=== PATIENT | male | born 1955 | race Caucasian/White ===

== ENCOUNTER 2020-04-17 08:03 | Outpatient (CLI) | payer MEDICARE, OTHER ==
--- NOTE | 2020-04-17 11:07 | ULT ---
BILATERAL RENAL ULTRASOUND: Date: 04/17/2020 COMPARISON: None. HISTORY: Chronic kidney disease. TECHNIQUE: Multiplanar Morton scale and color Doppler images were obtained in a renal ultrasound. FINDINGS: The kidneys are normal in echogenicity. There appears to be mild left-sided hydronephrosis. There is a slightly hypoechoic region in the mid portion of the right kidney measuring 3.7 cm in size. This ma y represent a normal lobulation of the right kidney. There is an echogenic focus in this region measu ring 4.0 mm in size, which could represent a nonshadowing calcification. There appears to be a 1.1 cm cyst in the left kidney. The kidneys measures 10.8 and 12.0 cm in length on the right and left, resp ectively. Limited visualization of the urinary bladder is unremarkable. IMPRESSION: 1. Hypoechoic region in the right kidney may represent a normal lobulation. A solid renal mass canno t be entirely excluded. A CT of the abdomen per renal mass protocol is recommended. 2. Likely nonobstructing small right renal calcification. 3. Left renal cyst. POS: [facility]
== END 2020-04-17 08:04 | disposition home or self-care (01) ==
LOC: SCSULT 08:03
PROVIDERS: ATTEND Internal Medicine
DX: N18.30 Chronic kidney disease, stage 3 unspecified (principal); N28.1 Cyst of kidney, acquired
CPT/HCPCS: 76770

== ENCOUNTER 2020-04-30 08:31 | Outpatient (CLI) | payer MEDICARE, OTHER ==
--- NOTE | 2020-04-30 10:22 | CT ---
CT ABDOMEN WITH AND WITHOUT CONTRAST: Renal mass protocol was followed. Postcontrast images were obtained in portal venous and delayed jaylyn ous phase. INDICATION: Question renal mass. Abnormal renal ultrasound 04/17/2020. FINDINGS: Images through the lung bases reveal a small 3 mm nodule in the right lower lobe. No infiltrate or e ffusion. Liver, spleen, pancreas, stomach, and duodenum unremarkable. Post cholecystectomy change. Adrenal glands normal. Review of the kidneys on noncontrast images shows a 3 mm nonobstructing calculus of the mid pole eric ecting structures of the right kidney. There is a parapelvic cyst in the left kidney measuring 2.3 c m. There appear to be other smaller parapelvic cysts bilaterally measuring up to 1.0 cm. There is no evidence of cortical mass. No enhancing abnormality. No evidence of cortical cyst. The delayed sequence shows contrast secretion into the collecting structures. No hydronephrosis. The visualized small and large bowel loops are unremarkable. The aorta is normal caliber. NO adenop athy or free fluid. Visualized osseous structures are unremarkable. There are degenerative disk rose nges at L5-S1. IMPRESSION: 1. Tiny nonobstructing calculus in the upper collecting structures of the right kidney. 2. Small bilateral parapelvic cysts. 3. No evidence of solid renal mass lesion. 4. No acute abdominal process. POS: AH
== END 2020-04-30 08:32 | disposition home or self-care (01) ==
LOC: SCSCT 08:31
PROVIDERS: ATTEND Internal Medicine
DX: N20.0 Calculus of kidney (principal); N13.30 Unspecified hydronephrosis; N28.9 Disorder of kidney and ureter, unspecified; N28.1 Cyst of kidney, acquired
CPT/HCPCS: 74170; 82565